=== PATIENT | female | born 1955 | race Caucasian/White ===

== ENCOUNTER → 2016-10-22 | Outpatient (CLI) | payer OTHER, MEDICARE ==
[~2016-10-22] MED LIST: ACETAMINOPHEN650 M5 PO; ATIVAN2 MG PO; DOXYCYCLINE 10100 MG PO; DUONEB 2.5-0.5 M3 ML INH; FIFTY50 RESERV1 EACH; GABAPENTIN PO; LEVAQUIN 250 M250 MG PO; LEVAQUIN 500 M500 M2 PO; LEVEMIR SQ; LISINOPRIL20 MG PO; MORPHINE SULFAT10 M2 PO; MORPHINE SULFAT15 M1 PO; MORPHINE SULFAT60 M1 PO; MULTIVITAMINS PO; NORTRIPTYLINE H10 M1; NORVASC 5 MG TAB5 MG PO; NOVOLOG100 UNIT/1 SQ; OMEPRAZOLE 20 M20 M1 PO; ORAMORPH SR15 M1 PO; PRAVACHOL20 MG PO; PREDNISONE 10 M10 MG; PROVIGIL 100 M100 MG PO; REMERON15 MG PO; TESSALON PERLE100 MG PO
== END ==
LOC: CAT 11:52
DX: J47.9 Bronchiectasis, uncomplicated (principal)

== ENCOUNTER 2017-08-13 12:17 | Inpatient (IN) | payer OTHER, MEDICARE ==
[~2017-08-13] VITALS: Ht 160 cm; Wt 45.8 kg
[2017-08-13 13:31] LABS: BE(vivo) 3.6 mmol/L (-2 to +3); HCO3 26.8 mmol/L (22.0-26.0); sO2 96.4 % (92.0-98.0)
[2017-08-13 14:35] VITALS: BP 148/68
[2017-08-13 15:36] LABS: RDW 13.2 % (10.5-14.5); WBC 13.4 thou/uL (4.0-11.0)
[2017-08-13 15:37] LABS: ABSOLUTE NEUTROPHILS 11.7 thou/uL (1.4-8.2); BASOPHILS 0.6 % (0.0-2.0); EOSINOPHILS 0.1 % (0.0-3.0); HEMATOCRIT 38.4 % (37.0-47.0); HEMOGLOBIN 12.6 gm/dL (12.0-15.0); MCH 29.5 pg (26.0-34.0); MCV 89.5 fL (80.0-100.0); MONOCYTES 4.1 % (1.0-8.0); PLATELET COUNT 305 thou/uL (150-400); POLYS 87.2 % (36.0-66.0); RBC 4.29 mil/uL (4.20-5.00)
[2017-08-13 15:51] LABS: ALBUMIN 2.9 g/dL (3.4-5.0); CALCIUM 8.7 mg/dL (8.5-10.1); CREATININE 0.9 mg/dL (0.6-1.0); POTASSIUM 3.3 mmol/L (3.5-5.1); TOTAL BILIRUBIN 0.4 mg/dL (<0.1-1.0); TOTAL PROTEIN 7.2 g/dL (6.4-8.2)
[2017-08-13 19:30] VITALS: BP 115/86
[2017-08-13] MEDS ORDERED: MS CONTIN60 MG PO (23:33)
[2017-08-13] MEDS ORDERED: MS CONTIN15 MG PO (23:34)
[2017-08-14 03:54] VITALS: BP 161/70
[2017-08-14 04:06] LABS: GLYCOHEMOGLOBIN (HGB A1C) 6.6 % (4.8-5.6)
[2017-08-14 05:27] LABS: ABSOLUTE NEUTROPHILS 6.5 thou/uL (1.4-8.2); BASOPHILS 0.2 % (0.0-2.0); HEMATOCRIT 34.5 % (37.0-47.0); HEMOGLOBIN 11.6 gm/dL (12.0-15.0); LYMPHOCYTES 5.3 % (24.0-44.0); MCH 29.8 pg (26.0-34.0); MCHC 33.7 g/dL (28.0-37.0); MCV 88.4 fL (80.0-100.0); PLATELET COUNT 297 thou/uL (150-400); POLYS 93.5 % (36.0-66.0); RDW 13.1 % (10.5-14.5)
[2017-08-14 05:41] LABS: URINE BILIRUBIN NEGATIVE (Negative); URINE BLOOD NEGATIVE (Negative); URINE CLARITY CLEAR; URINE COLOR YELLOW; URINE GLUCOSE-RANDOM* 3+ (Negative); URINE KETONES NEGATIVE (Negative); URINE LEUKOCYTES-REFLEX NEGATIVE (Negative); URINE NITRITE-REFLEX NEGATIVE (Negative); URINE PROTEIN (DIPSTICK) NEGATIVE (Negative); URINE SPECIFIC GRAVITY <= 1.005 (1.005-1.035); URINE UROBILINOGEN 0.2 E.U./dl (0.2-1.0)
[2017-08-14 05:50] LABS: CALCIUM 8.7 mg/dL (8.5-10.1); CREATININE 0.8 mg/dL (0.6-1.0); POTASSIUM 3.5 mmol/L (3.5-5.1)
[2017-08-14 07:21] VITALS: BP 138/67
[2017-08-14 15:51] VITALS: BP 113/47
[2017-08-14 20:39] VITALS: BP 120/61
[2017-08-15 04:33] VITALS: BP 140/71
[2017-08-15 07:15] VITALS: BP 126/55
[2017-08-15 11:00] LABS: HEMATOCRIT 34.3 % (37.0-47.0); HEMOGLOBIN 11.3 gm/dL (12.0-15.0); MCH 29.8 pg (26.0-34.0); MCV 90.4 fL (80.0-100.0); PLATELET COUNT 325 thou/uL (150-400); RDW 13.6 % (10.5-14.5); WBC 20.9 thou/uL (4.0-11.0)
[2017-08-15 11:04] LABS: CALCIUM 9.1 mg/dL (8.5-10.1); CREATININE 1.1 mg/dL (0.6-1.0); POTASSIUM 3.3 mmol/L (3.5-5.1)
[2017-08-15 12:01] LABS: ABSOLUTE NEUTROPHILS 20.1 thou/uL (1.4-8.2); ANISOCYTOSIS 1+; POLYCHROMASIA OCCASIONAL
[2017-08-15 15:21] VITALS: BP 118/53
[2017-08-15 20:22] VITALS: BP 136/73
[2017-08-16 04:00] VITALS: BP 140/79
[2017-08-16 05:32] LABS: ABSOLUTE NEUTROPHILS 16.2 thou/uL (1.4-8.2); BASOPHILS 0.1 % (0.0-2.0); HEMATOCRIT 33.3 % (37.0-47.0); HEMOGLOBIN 10.9 gm/dL (12.0-15.0); LYMPHOCYTES 2.1 % (24.0-44.0); MCH 29.7 pg (26.0-34.0); MCHC 32.9 g/dL (28.0-37.0); MCV 90.3 fL (80.0-100.0); MONOCYTES 2.5 % (1.0-8.0); PLATELET COUNT 295 thou/uL (150-400); POLYS 95.3 % (36.0-66.0); RBC 3.69 mil/uL (4.20-5.00); RDW 13.4 % (10.5-14.5)
[2017-08-16 05:43] LABS: CALCIUM 8.4 mg/dL (8.5-10.1); CREATININE 0.8 mg/dL (0.6-1.0)
[2017-08-16 05:50] LABS: POTASSIUM 4.4 mmol/L (3.5-5.1)
[2017-08-16 07:00] VITALS: BP 144/85
[2017-08-16] MEDS ORDERED: LEVAQUIN 500 M500 M2 PO (11:27)
[2017-08-16] MEDS ORDERED: FLONASE 0.05%50 MCG NASAL (11:27)
[2017-08-16 12:48] VITALS: BP 144/85
== END 2017-08-16 13:54 | disposition home or self-care (01) | DRG 177 ==
LOC: 4E 12:17
PROVIDERS: Family Medicine; Internal Medicine Pulmonary Disease
DX: J15.6 Pneumonia due to other Gram-negative bacteria (principal); E43 Unspecified severe protein-calorie malnutrition; J44.1 Chronic obstructive pulmonary disease with (acute) exacerbation; Z68.1 Body mass index [BMI] 19.9 or less, adult; I10 Essential (primary) hypertension; E78.00 Pure hypercholesterolemia, unspecified; F41.9 Anxiety disorder, unspecified; E11.40 Type 2 diabetes mellitus with diabetic neuropathy, unspecified; G89.29 Other chronic pain; J32.9 Chronic sinusitis, unspecified; K21.9 Gastro-esophageal reflux disease without esophagitis; Z87.891 Personal history of nicotine dependence; Z79.899 Other long term (current) drug therapy; Z88.6 Allergy status to analgesic agent; Z88.0 Allergy status to penicillin; Z79.4 Long term (current) use of insulin
CPT/HCPCS: 10783

== ENCOUNTER → 2018-04-05 | Outpatient (CLI) | payer OTHER, MEDICARE ==
[~2018-04-05] MED LIST changes: +FLONASE 0.05%50 MCG NASAL; +MS CONTIN15 MG PO; +MS CONTIN60 MG PO
== END ==
LOC: RAD 12:42
DX: J98.4 Other disorders of lung (principal)